=== PATIENT | female | born 1990 | race Caucasian/White ===

== ENCOUNTER 2019-12-30 15:54 | Inpatient (IN) | payer OTHER ==
[2019-12-30] MEDS ORDERED: Ondansetron 4 MG/2 ML SDV IVPUSH PRN ×2 (16:50→21:19)
[2019-12-30] MEDS ORDERED: Calcium Carbonate 500 MG Tab.Chew PO PRN (16:50)
[2019-12-30] MEDS ORDERED: Sodium Chloride 0.9% 10 ML Syringe FLUSH PRN (16:50)
[2019-12-30] MEDS ORDERED: Nalbuphine 10 MG/ML Syringe IVPUSH PRN (16:50)
[2019-12-30] MEDS ORDERED: Lidocaine 1% 50 ML MDV INJECT ONE (16:50)
[2019-12-30] MEDS ORDERED: Oxytocin/Lactated Ringers 10 UNIT/1,000 ML BAG IV SCH ×2 (17:00)
[2019-12-30] MEDS: Lactated Ringers 1,000 ML IV SCH ×3 (17:28→22:03)
--- NOTE | 2019-12-30 17:56 | PCM.LDHP ---
L&D History of Present Illness - General Date of Service: 12/30/19 Admit Problem/Dx: Patient Status Order with Admit Dx/Problem 12/30/19 16:50 Patient Status [ADT] Routine Admission Diagnosis/Problem Admission Diagnosis/Problem Source of Information: Patient History Limitations: Reports: No Limitations - History of Present Illness Introduction:: Shira Ortiz is a 29-year-old -0-1-2 at 41 weeks 1 day by LMP consistent with 6-week ultrasound ([facility] 12/22/2019) who presents for induction of labor in the setting of decreased movement at 41 weeks gestational age. She was seen in the clinic with her regular physician, Dr. Junior, today and while she was there she noted that she was having decreased movement. Because of her late term gestational age it was recommended for her to have induction of labor and she was transferred over to the labor and delivery unit for induction. She denies any cramping or contractions but did have one episode of upper abdominal pain earlier this week that resolved spontaneously. She denies any leaking of fluid or vaginal bleeding. Present Illness Comments:: Shira Ortiz is a 29-year-old -0-1-2 at 41 weeks 1 day by LMP consistent with a 6-week ultrasound ([facility] 12/22/2019) who presents for induction of labor in the setting of decreased movement at 41 weeks gestational age. She has had routine care with Dr. Junior starting at 6 weeks gestational age. She denies any significant problems or concerns throughout the . She was diagnosed with a subchorionic hemorrhage early in but did not have any significant bleeding or cramping episodes with this subchorionic hemorrhage in place. Her has been otherwise overall uncomplicated. This is complicated by: * Elevated 1 hour glucose tolerance test with a value of 132, normal 3-hour glucose tolerance test * History of anxiety and depression, currently not on medications * History of asthma but has not had any recent flares and typically will only have a flare with respiratory illness labs Blood type: O+ Antibody screen: Negative First trimester hematocrit/hemoglobin: 39.2%/13.5 on 06/09/2019 Platelets: 209 on 06/09/2019 Urine culture: Negative Rubella status: Immune Hepatitis B surface antigen: [Negative] RPR: [Negative] HIV: [Negative] Gonorrhea: [Negative] Chlamydia: [Negative] [] One hour glucose tolerance test: 132 Second trimester hemoglobin: 11.6 on 09/02/2019 Platelets: 203 on 09/02/2019 3-hour glucose tolerance test: Normal per report, values not listed on available records 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 G1: 01/31/2015, , 41 weeks 3 days, 8 pounds 4 ounces, received epidural, no complications G2: 10/02/2016, , 40 weeks 1 day, 8 pounds 11 ounces, received epidural, no complications G3: SAB in 01/2019 at approximately 6 weeks gestational age G4: Current History of chlamydia in 2010 and received treatment, no additional sexual transmitted infections since then History of abnormal Pap smear in 2015 with normal in 2017 - Related Data Allergies/Adverse Reactions: Allergies Allergy/AdvReac Type Severity Reaction Status Date / Time No Known Allergies Allergy Verified 12/30/19 16:45 Home Medications: Home Meds Cholecalciferol (Vitamin D3) [Vitamin D3] 1,000 unit PO DAILY 12/21/19 [History] Ferrous Sulfate [Iron] 325 mg PO DAILY 12/21/19 [History] No122/Iron/Folic Acid [ Multi Tablet] 1 each PO DAILY 12/21/19 [History] Past Medical History HEENT History: Reports: Other (See Below) Other HEENT History: spots in vision. 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: Reports: Endometriosis, , Spontaneous : 4 Para: 2 Psychiatric History: Reports: Anxiety, Depression - Past Surgical History HEENT Surgical History: Reports: Oral Surgery Other HEENT Surgeries/Procedures: wisdom tooth extraction Other Respiratory Surgeries/Procedures: occassionally needs albuterol inhaler, has not needed in years Female Surgical History: Reports: D&C, Other (See Below) Other Female Surgeries/Procedures: Lap for ovarian cyst rupture and endometriosis Social & Family History - Family History Family Medical History: Noncontributory - Tobacco Use Smoking Status *Q: Never Smoker Second Hand Smoke Exposure: No - Tobacco Core Measures Tobacco Use/Smoking Within Last 30 Days: No Smokeless Tobacco Use in Last 30 Days: No - Caffeine Use Caffeine Use: Reports: None - Alcohol Use Alcohol Use History: No - Recreational Drug Use Recreational Drug Use: No - Living Situation & Occupation Living situation: Reports: , with Spouse, with Family Occupation: Employed H&P Review of Systems - Review of Systems: Review Of Systems: See Below General: Denies: Fever, Chills, Fatigue HEENT: Reports: Glasses. Denies: Headaches, Rhinitis, Post Nasal Drip, Sinus Congestion, Sore Throat, Visual Changes Pulmonary: Denies: Shortness of Breath, Wheezing, Pleuritic Chest Pain, Cough Cardiovascular: Reports: Palpitations (occasional). Denies: Chest Pain Gastrointestinal: Denies: Abdominal Pain, Constipation, Diarrhea, Nausea, Vomiting Genitourinary: Denies: Dysuria, Frequency, Burning, Pain, Urgency Musculoskeletal: Reports: Back Pain (And hip pain of ) Skin: Denies: Rash, Lesions Psychiatric: Denies: Depression, Anxiety Hematologic/Lymphatic: Denies: Anemia L&D Exam - Exam Exam: See Below - Vital Signs Vital Signs: Last Vital Signs Temp 36.2 C 12/30/19 16:40 Pulse 103 H 12/30/19 16:40 Resp 14 12/30/19 16:40 BP 131/83 12/30/19 16:40 Pulse Ox 95 12/30/19 16:40 Weight: 91.58 kg - OB Specific Contraction Duration (sec): 45-60 Contraction Frequency (min): 25-30 Contraction Intensity: Mild to Moderate Movement: Active Heart Tones: Present Heart Tones per Min: 145 (+15 x 15 accelerations, intermittent variable decelerations) Heart Rate (FHR) Variability: Moderate (6-25 bmp) Presentation: Vertex Estimated Weight: 8-8.5 lbs by [place] - Bose Score Bose Score Cervix Position: Posterior Bose Score Consistency: Medium Bose Score Effacement: 31-50% (50) Bose Score Dilation: 1-2 cm (1.5 cm) Bose Score Infant's Station: -3 Bose Score Total: 3 - Exam General: Alert, Oriented HEENT: Conjunctiva Clear, EOMI Neck: Supple, Trachea Midline Lungs: Clear to Auscultation, Normal Respiratory Effort Cardiovascular: Regular Rate, Regular Rhythm GI/Abdominal Exam: Soft Genitourinary: Normal external exam Extremities: Normal Inspection, Pedal Edema (Trace pedal edema) Skin: Warm, Dry, Intact Psychiatric: Alert, Normal Affect, Normal Mood - Patient Data Lab Results Last 24 hrs: Laboratory Results - last 24 hr 12/30/19 Range/Units 17:30 WBC 11.76 H (3.98-10.04) K/mm3 RBC 3.86 L (3.98-5.22) M/mm3 Hgb 10.6 L (11.2-15.7) gm/dl Hct 33.9 L (34.1-44.9) % MCV 87.8 (79.4-94.8) fl MCH 27.5 (25.6-32.2) pg MCHC 31.3 L (32.2-35.5) g/dl RDW Std Deviation 42.6 (36.4-46.3) fL Plt Count 216 (182-369) K/mm3 MPV 10.9 (9.4-12.3) fl Neut % (Auto) 72.9 H (34.0-71.1) % Lymph % (Auto) 18.8 L (19.3-51.7) % [place] % (Auto) 7.1 (4.7-12.5) % Eos % (Auto) 0.8 (0.7-5.8) Baso % (Auto) 0.1 (0.1-1.2) % Neut # (Auto) 8.58 H (1.56-6.13) K/mm3 Lymph # (Auto) 2.21 (1.18-3.74) K/mm3 [place] # (Auto) 0.83 H (0.24-0.36) K/mm3 Eos # (Auto) 0.09 (0.04-0.36) K/mm3 Baso # (Auto) 0.01 (0.01-0.08) K/mm3 Result Diagrams: 12/30/19 17:30 - Problem List (1) 41 weeks gestation of SNOMED Code(s): 77850399 ICD Code: Z3A.41 - 41 WEEKS GESTATION OF Status: Acute Current Visit: Yes Problem List Initiated/Reviewed/Updated: Yes Orders Last 24hrs: Active Orders 24 hr Category Date Time Status Patient Status [ADT] Routine ADT 12/30/19 16:50 Active Activity as Tolerated [RC] PFP Care 12/30/19 16:50 Active Communication Order [RC] ASDIRECTED Care 12/30/19 16:50 Active Heart Tones [RC] ASDIRECTED Care 12/30/19 16:52 Active Notify Provider [RC] PFP Care 12/30/19 16:50 Active Notify Provider [RC] PRN Care 12/30/19 16:50 Active Peripheral IV Care [RC] . DIRECTED Care 12/30/19 16:52 Active Pump Management, Intrathecal [RC] ASDIRECTED Care 12/30/19 16:53 Active Urinary Catheter Assessment [RC] ASDIRECTED Care 12/30/19 16:50 Active Vital Signs [RC] PER UNIT ROUTINE Care 12/30/19 16:50 Active Regular Diet [DIET] Diet 12/30/19 Dinner Active RAPID PLASMA REAGIN,RPR [CHEM] Routine Lab 12/30/19 17:30 Received Calcium Carbonate [Tums] Med 12/30/19 16:50 Active 1,000 mg PO Q2H PRN Lactated Ringers [Ringers, Lactated] 1,000 ml Med 12/30/19 17:00 Active IV ASDIRECTED Nalbuphine [Nubain] Med 12/30/19 16:50 Active 10 mg IVPUSH Q2H PRN Ondansetron [Zofran] Med 12/30/19 16:50 Active 4 mg IVPUSH Q4H PRN Oxytocin/Lactated Ringers [Pitocin in LR 10 Units/1,000 Med 12/30/19 17:00 Active ML] 10 unit in 1,000 ml IV .CONTINUOUS Oxytocin/Lactated Ringers [Pitocin in LR 10 Units/1,000 Med 12/30/19 17:00 Active ML] 10 unit in 1,000 ml IV TITRATE Sodium Chloride 0.9% [Saline Flush] Med 12/30/19 16:50 Active 10 ml FLUSH ASDIRECTED PRN Electronic Heart Tones Ext w TOCO [WOMSER] Oth 12/30/19 16:50 Ordered Routine Electronic Heart Tones Internal [WOMSER] Per Unit Oth 12/30/19 16:50 Ordered Routine Peripheral IV Insertion Adult [OM.PC] Routine Oth 12/30/19 16:50 Ordered Resuscitation Status Routine Resus Stat 12/30/19 16:50 Ordered Medication Orders Calcium Carbonate/Glycine (Tums) 1,000 mg PO Q2H PRN PRN Reason: Indigestion Lactated Ringer's (Ringers, Lactated) 1,000 mls @ 100 mls/hr IV ASDIRECTED KAT Last Admin: 12/30/19 17:28 Dose: 100 mls/hr Oxytocin/Lactated Ringer's (Pitocin In Lr 10 Units/1,000 Ml) 10 unit in 1,000 mls @ 12 mls/hr IV TITRATE KAT; Protocol Last Admin: 12/30/19 17:28 Dose: 2 munits/min, 12 mls/hr Oxytocin/Lactated Ringer's (Pitocin In Lr 10 Units/1,000 Ml) 10 unit in 1,000 mls @ 100 mls/hr IV .CONTINUOUS KAT Nalbuphine HCl (Nubain) 10 mg IVPUSH Q2H PRN PRN Reason: Pain Ondansetron HCl (Zofran) 4 mg IVPUSH Q4H PRN PRN Reason: Nausea/Vomiting Sodium Chloride (Saline Flush) 10 ml FLUSH ASDIRECTED PRN PRN Reason: Keep Vein Open Assessment/Plan Comment:: Refer to observation for induction of labor in the setting of decreased movement and late term Start Pitocin for induction of labor Continuous monitoring Place IV and have Lactated Ringer's at 125 ml/hr May have small amounts of regular diet Activity as tolerated May have epidural as desired Plans to breast-feed after delivery Anticipate vaginal delivery unless otherwise indicated Shay Moctezuma MD 6:05 PM 12/30/2019
[2019-12-30] MEDS ORDERED: fentaNYL 100 MCG/2 ML SDV EPIDUR PRN (21:19)
[2019-12-30] MEDS ORDERED: ePHEDrine 50 MG/ML SDV IVPUSH PRN (21:19)
--- NOTE | 2019-12-30 21:23 | PCM.PREANE ---
Preanesthetic Assessment - Procedure Proposed Procedure: Epidural. - Anesthesia/Transfusion/Family Hx Anesthesia History: Prior Anesthesia Without Reaction Family History of Anesthesia Reaction: No Transfusion History: No Prior Transfusion(s) Intubation History: Unknown - Review of Systems General: No Symptoms Pulmonary: No Symptoms (asthma-2014 last used inhaler) Cardiovascular: No Symptoms, Palpitations (on occasion) Gastrointestinal: No Symptoms (GERD) Neurological: Headache (migraines) Other: Reports: Sinus Problem (nasal polyps), Depression, Anxiety - Physical Assessment NPO Status Date: 12/30/19 NPO Status Time: 18:00 Vital Signs: Last Vital Signs Temp 36.2 C 12/30/19 16:40 Pulse 103 H 12/30/19 16:40 Resp 14 12/30/19 16:40 BP 131/83 12/30/19 16:40 Pulse Ox 95 12/30/19 16:40 Height: 1.73 m Weight: 91.58 kg ASA Class: 2 Mental Status: Alert & Oriented x3 Airway Class: Mallampati = 2 Dentition: Reports: Normal Dentition, Caries Thyro-Mental Finger Breadths: 3 Mouth Opening Finger Breadths: 3 ROM/Head Extension: Full Lungs: Clear to Auscultation, Normal Respiratory Effort Cardiovascular: Regular Rate, Regular Rhythm, No Murmurs - Lab Values: Laboratory Last Values WBC 11.76 K/mm3 (3.98-10.04) H 12/30/19 17:30 RBC 3.86 M/mm3 (3.98-5.22) L 12/30/19 17:30 Hgb 10.6 gm/dl (11.2-15.7) L 12/30/19 17:30 Hct 33.9 % (34.1-44.9) L 12/30/19 17:30 MCV 87.8 fl (79.4-94.8) 12/30/19 17:30 MCH 27.5 pg (25.6-32.2) 12/30/19 17:30 MCHC 31.3 g/dl (32.2-35.5) L 12/30/19 17:30 RDW Std Deviation 42.6 fL (36.4-46.3) 12/30/19 17:30 Plt Count 216 K/mm3 (182-369) 12/30/19 17:30 MPV 10.9 fl (9.4-12.3) 12/30/19 17:30 Neut % (Auto) 72.9 % (34.0-71.1) H 12/30/19 17:30 Lymph % (Auto) 18.8 % (19.3-51.7) L 12/30/19 17:30 [place] % (Auto) 7.1 % (4.7-12.5) 12/30/19 17:30 Eos % (Auto) 0.8 (0.7-5.8) 12/30/19 17:30 Baso % (Auto) 0.1 % (0.1-1.2) 12/30/19 17:30 Neut # (Auto) 8.58 K/mm3 (1.56-6.13) H 12/30/19 17:30 Lymph # (Auto) 2.21 K/mm3 (1.18-3.74) 12/30/19 17:30 [place] # (Auto) 0.83 K/mm3 (0.24-0.36) H 12/30/19 17:30 Eos # (Auto) 0.09 K/mm3 (0.04-0.36) 12/30/19 17:30 Baso # (Auto) 0.01 K/mm3 (0.01-0.08) 12/30/19 17:30 Above labs reviewed and noted and within acceptable ranges to proceed with epidural. - Allergies Allergies/Adverse Reactions: Allergies Allergy/AdvReac Type Severity Reaction Status Date / Time No Known Allergies Allergy Verified 12/30/19 16:45 - Anesthesia Plan Pre-Op Medication Ordered: None - Acknowledgements Anesthesia Type Planned: Epidural Pt an Appropriate Candidate for the Planned Anesthesia: Yes Alternatives and Risks of Anesthesia Discussed w Pt/Guardian: Yes Pt/Guardian Understands and Agrees with Anesthesia Plan: Yes PreAnesthesia Questionnaire HEENT History: Reports: Other (See Below) Other HEENT History: spots in vision. 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 Psychiatric History: Reports: Anxiety, Depression - Past Surgical History HEENT Surgical History: Reports: Oral Surgery Other HEENT Surgeries/Procedures: wisdom tooth extraction Other Respiratory Surgeries/Procedures: occassionally needs albuterol inhaler, has not needed in years Female Surgical History: Reports: D&C, Other (See Below) Other Female Surgeries/Procedures: Lap for ovarian cyst rupture and endometriosis - SUBSTANCE USE Smoking Status *Q: Never Smoker Tobacco Use Within Last Twelve Months: No Second Hand Smoke Exposure: No Recreational Drug Use History: No - HOME MEDS Home Medications: Home Meds No122/Iron/Folic Acid [ Multi Tablet] 1 each PO DAILY 12/21/19 [History] - CURRENT (IN HOUSE) MEDS Current Meds: Current Medications Calcium Carbonate/Glycine (Tums) 1,000 mg PO Q2H PRN PRN Reason: Indigestion Ephedrine Sulfate (Ephedrine Sulfate) 5 mg IVPUSH ASDIRECTED PRN PRN Reason: Hypotension Fentanyl (Sublimaze) 100 mcg EPIDUR Q3H PRN PRN Reason: Pain Fentanyl/Bupivacaine HCl (Fentanyl/Bupivacaine/Ns 2 Mcg-0.125% 100 Ml) 100 ml EPIDUR ASDIRECTED KAT Lactated Ringer's (Ringers, Lactated) 1,000 mls @ 100 mls/hr IV ASDIRECTED KAT Last Admin: 12/30/19 17:28 Dose: 100 mls/hr Oxytocin/Lactated Ringer's (Pitocin In Lr 10 Units/1,000 Ml) 10 unit in 1,000 mls @ 12 mls/hr IV TITRATE KAT; Protocol Last Titration: 12/30/19 20:15 Dose: 10 munits/min, 60 mls/hr Oxytocin/Lactated Ringer's (Pitocin In Lr 10 Units/1,000 Ml) 10 unit in 1,000 mls @ 100 mls/hr IV .CONTINUOUS KAT Nalbuphine HCl (Nubain) 10 mg IVPUSH Q2H PRN PRN Reason: Pain Ondansetron HCl (Zofran) 4 mg IVPUSH Q4H PRN PRN Reason: Nausea/Vomiting Ondansetron HCl (Zofran) 4 mg IVPUSH ONETIME PRN PRN Reason: Nausea/Vomiting Sodium Chloride (Saline Flush) 10 ml FLUSH ASDIRECTED PRN PRN Reason: Keep Vein Open Discontinued Medications Lidocaine HCl (Xylocaine 1%) 50 ml INJECT ONETIME ONE Stop: 12/30/19 16:51
[2019-12-30] MEDS ORDERED: Bupivacaine/fentaNYL/NS 100 ML Bag EPIDUR SCH (21:30)
--- NOTE | 2019-12-30 23:11 | PCM.PNLD ---
Labor Progress Note - VS & Meds Vital Signs: Last Vital Signs Temp 36.2 C 12/30/19 16:40 Pulse 103 H 12/30/19 16:40 Resp 14 12/30/19 16:40 BP 131/83 12/30/19 16:40 Pulse Ox 95 12/30/19 16:40 Active Medications: Current Medications Calcium Carbonate/Glycine (Tums) 1,000 mg PO Q2H PRN PRN Reason: Indigestion Ephedrine Sulfate (Ephedrine Sulfate) 5 mg IVPUSH ASDIRECTED PRN PRN Reason: Hypotension Fentanyl (Sublimaze) 100 mcg EPIDUR Q3H PRN PRN Reason: Pain Last Admin: 12/30/19 21:30 Dose: 100 mcg Fentanyl/Bupivacaine HCl (Fentanyl/Bupivacaine/Ns 2 Mcg-0.125% 100 Ml) 100 ml EPIDUR ASDIRECTED KAT Last Admin: 12/30/19 21:30 Dose: 100 ml Lactated Ringer's (Ringers, Lactated) 1,000 mls @ 100 mls/hr IV ASDIRECTED KAT Last Admin: 12/30/19 22:03 Dose: 100 mls/hr Oxytocin/Lactated Ringer's (Pitocin In Lr 10 Units/1,000 Ml) 10 unit in 1,000 mls @ 12 mls/hr IV TITRATE KAT; Protocol Last Titration: 12/30/19 21:55 Dose: 12 munits/min, 72 mls/hr Oxytocin/Lactated Ringer's (Pitocin In Lr 10 Units/1,000 Ml) 10 unit in 1,000 mls @ 100 mls/hr IV .CONTINUOUS KAT Nalbuphine HCl (Nubain) 10 mg IVPUSH Q2H PRN PRN Reason: Pain Ondansetron HCl (Zofran) 4 mg IVPUSH Q4H PRN PRN Reason: Nausea/Vomiting Ondansetron HCl (Zofran) 4 mg IVPUSH ONETIME PRN PRN Reason: Nausea/Vomiting Sodium Chloride (Saline Flush) 10 ml FLUSH ASDIRECTED PRN PRN Reason: Keep Vein Open Discontinued Medications Lidocaine HCl (Xylocaine 1%) 50 ml INJECT ONETIME ONE Stop: 12/30/19 16:51 - Uterine Contractions Uterine Monitoring Mode: External Green Contraction Frequency (min): 2-3 Contraction Duration (sec): 45-60 Contraction Intensity: Moderate to Strong Uterine Resting Tone: Soft - Monitoring Monitor Mode: Doppler/Auscultation Heart Rate (FHR) Baseline: 140 Heart Rate (FHR) Per Doppler: 140 Heart Rate (FHR) Variability: Moderate (6-25 bmp) Accelerations: Present, 15x15 Decelerations: Variable, Intermittent (<50% x 20 min) Strip Review: Category II - Vaginal Exam Dilation (cm): 3 Effacement (Percent): 75 Station: -3 Cervical Position: Anterior Sterile Vaginal Exam Performed By: Shay Moctezuma Vaginal Exam Comment: Artificial rupture membranes performed with [place]. Return of clear fluid. Mother and tolerated procedure without difficulty. - Labor Progress (Free Text) Labor Progress: Patient continuing to make good progression at this time Artificial rupture membranes performed with return of clear fluid. Mother and infant tolerated procedure without difficulty Patient with epidural in place and working well at this time Routine vitals Continuous monitoring Continue Pitocin for induction of labor Anticipate vaginal delivery unless otherwise indicated Shay Moctezuma MD 11:11 PM 12/30/2019
--- NOTE | 2019-12-31 04:08 | PCM.DEL ---
L & D Note - General Info Date of Service: 12/31/19 Mother's Due Date: 12/22/19 - Delivery Note Labor: Augmented by ARM, Induced by Oxytocin Delivery Outcome: Livebirth Delivery Method: Spontaneous Vaginal Delivery-Single Presentation: Right Occiput Anterior (RINA) Nuchal Cord: None Prep: Povidone-Iodine (Betadine Anesthesia Type: Epidural Amniotic Fluid Description: Clear Episiotomy Type: None Laceration: 1st Degree (Perineal laceration, repaired with 4-0 Vicryl) Suture type: Vicryl Suture size: 4-0 Placenta: Intact, Spontaneous Cord: 3 Vessels Estimated Blood Loss: 200 Resuscitation Needed: No : Bulb Syringe, Stimulated, Warmed, [place] Used Provider: Shay Moctezuma Score 1 min: 8 Score 5 min: 9 Second Stage Interventions: Reports: Pushing, Stirrups/Leg Supports Delivery Comments (Free Text/Narrative):: Stage I: Shira Ortiz was admitted for induction of labor in the setting of decreased movement in the late setting at 41 weeks gestational age. On admission her cervix was dilated to 1.5 cm. She was GBS negative. Attempt was made to place a 18 [place] Boyd bulb but unsuccessful with manual placement. Patient declined placement with speculum. Patient was started on Pitocin for induction of labor. She was given an epidural for anesthesia. She had artificial rupture membranes with return of clear fluid. She progressed to complete and pushing. Stage II: On 12/31/2019 she had a normal vaginal delivery of a live female at 03:22. Apgars of 8 & 9. Weight and length were unavailable at time of the note. There was no nuchal cord. was delivered in RINA position. The cord was doubly clamped and cut by father the . Infant was placed on mother's abdomen. Stage III: She had a spontaneous delivery of an intact placenta in [place] presentation. Three vessel cord. She was given pitocin and fundal massage. She had a first-degree midline perineal laceration that was bleeding and was repaired with 4-0 Vicryl. She continued to have small pinpoint area with bleeding that was made hemostatic with a [id number] suture using 4-0 Vicryl. Mom and baby were stable to recovery. EBL of 200 mL. Shay Moctezuma MD 4:05 AM 12/31/2019 Induction Criteria - Bose Score Bose Score Dilation: 1-2 cm Bose Score Effacement: 40-50% Bose Score Infant's Station: -3 Bose Score Consistency: Medium Bose Score Cervix Position: Posterior Bose Score Total: 3 Bose Score Presenting Part: Reports: Cephalic - Induction Gestational Age >/= 39 wks: Yes Medical Indication: Decreased movement in late term gestational age at 41 weeks Estimated Pelvis: Reports: Adequate Reassuring Monitoring Strip: Yes Absence of Tachy Systole: Yes - Augmentation Estimated Pelvis: Reports: Adequate Weight Estimated:: Reports: AGA Reassuring Monitoring Strip: Yes Absence of Tachy Systole: Yes - General Info Date of Service: 12/31/19 - Patient Data Vitals - Most Recent: Last Vital Signs Temp 36.2 C 12/30/19 16:40 Pulse 103 H 12/30/19 16:40 Resp 14 12/30/19 16:40 BP 131/83 12/30/19 16:40 Pulse Ox 95 12/30/19 16:40 Weight - Most Recent: 91.58 kg I&O - Last 24 Hours: Intake & Output 12/30/19 12/30/19 12/31/19 14:59 22:59 06:59 Intake Total 1000 Balance 1000 Lab Results Last 24 Hours: Laboratory Results - last 24 hr 12/30/19 Range/Units 17:30 WBC 11.76 H (3.98-10.04) K/mm3 RBC 3.86 L (3.98-5.22) M/mm3 Hgb 10.6 L (11.2-15.7) gm/dl Hct 33.9 L (34.1-44.9) % MCV 87.8 (79.4-94.8) fl MCH 27.5 (25.6-32.2) pg MCHC 31.3 L (32.2-35.5) g/dl RDW Std Deviation 42.6 (36.4-46.3) fL Plt Count 216 (182-369) K/mm3 MPV 10.9 (9.4-12.3) fl Neut % (Auto) 72.9 H (34.0-71.1) % Lymph % (Auto) 18.8 L (19.3-51.7) % [place] % (Auto) 7.1 (4.7-12.5) % Eos % (Auto) 0.8 (0.7-5.8) Baso % (Auto) 0.1 (0.1-1.2) % Neut # (Auto) 8.58 H (1.56-6.13) K/mm3 Lymph # (Auto) 2.21 (1.18-3.74) K/mm3 [place] # (Auto) 0.83 H (0.24-0.36) K/mm3 Eos # (Auto) 0.09 (0.04-0.36) K/mm3 Baso # (Auto) 0.01 (0.01-0.08) K/mm3 Med Orders - Current: Current Medications Calcium Carbonate/Glycine (Tums) 1,000 mg PO Q2H PRN PRN Reason: Indigestion Ephedrine Sulfate (Ephedrine Sulfate) 5 mg IVPUSH ASDIRECTED PRN PRN Reason: Hypotension Fentanyl (Sublimaze) 100 mcg EPIDUR Q3H PRN PRN Reason: Pain Last Admin: 12/30/19 21:30 Dose: 100 mcg Fentanyl/Bupivacaine HCl (Fentanyl/Bupivacaine/Ns 2 Mcg-0.125% 100 Ml) 100 ml EPIDUR ASDIRECTED KAT Last Admin: 12/30/19 21:30 Dose: 100 ml Lactated Ringer's (Ringers, Lactated) 1,000 mls @ 100 mls/hr IV ASDIRECTED KAT Last Admin: 12/30/19 22:03 Dose: 100 mls/hr Oxytocin/Lactated Ringer's (Pitocin In Lr 10 Units/1,000 Ml) 10 unit in 1,000 mls @ 12 mls/hr IV TITRATE KAT; Protocol Last Titration: 12/31/19 03:23 Dose: 999 mls/hr Oxytocin/Lactated Ringer's (Pitocin In Lr 10 Units/1,000 Ml) 10 unit in 1,000 mls @ 100 mls/hr IV .CONTINUOUS KAT Last Admin: 12/31/19 03:49 Dose: 999 mls/hr Nalbuphine HCl (Nubain) 10 mg IVPUSH Q2H PRN PRN Reason: Pain Ondansetron HCl (Zofran) 4 mg IVPUSH Q4H PRN PRN Reason: Nausea/Vomiting Ondansetron HCl (Zofran) 4 mg IVPUSH ONETIME PRN PRN Reason: Nausea/Vomiting Sodium Chloride (Saline Flush) 10 ml FLUSH ASDIRECTED PRN PRN Reason: Keep Vein Open Discontinued Medications Lidocaine HCl (Xylocaine 1%) 50 ml INJECT ONETIME ONE Stop: 12/30/19 16:51 - Problem List & Annotations (1) 41 weeks gestation of SNOMED Code(s): 05006984 Code(s): Z3A.41 - 41 WEEKS GESTATION OF Status: Acute Current Visit: Yes (2) Vaginal delivery SNOMED Code(s): 351689658 Code(s): O80 - ENCOUNTER FOR FULL-TERM UNCOMPLICATED DELIVERY Status: Acute Current Visit: Yes (3) First degree perineal laceration during delivery SNOMED Code(s): 831428874 Code(s): O70.0 - FIRST DEGREE PERINEAL LACERATION DURING DELIVERY Status: Acute Current Visit: Yes - Problem List Review Problem List Initiated/Reviewed/Updated: Yes - My Orders Last 24 Hours: My Active Orders 12/30/19 16:50 Patient Status [ADT] Routine Activity as Tolerated [RC] PFP Communication Order [RC] ASDIRECTED Notify Provider [RC] PFP Notify Provider [RC] PRN Urinary Catheter Assessment [RC] ASDIRECTED Calcium Carbonate [Tums] 1,000 mg PO Q2H PRN Nalbuphine [Nubain] 10 mg IVPUSH Q2H PRN Ondansetron [Zofran] 4 mg IVPUSH Q4H PRN Sodium Chloride 0.9% [Saline Flush] 10 ml FLUSH ASDIRECTED PRN Electronic Heart Tones Ext w TOCO [WOMSER] Routine Electronic Heart Tones Internal [WOMSER] Per Unit Routine Peripheral IV Insertion Adult [OM.PC] Routine Resuscitation Status Routine 12/30/19 16:52 Peripheral IV Care [RC] Q2HR 12/30/19 16:53 Pump Management, Intrathecal [RC] ASDIRECTED 12/30/19 17:00 Lactated Ringers [Ringers, Lactated] 1,000 ml IV ASDIRECTED Oxytocin/Lactated Ringers [Pitocin in LR 10 Units/1,000 ML] 10 unit in 1,000 ml IV .CONTINUOUS Oxytocin/Lactated Ringers [Pitocin in LR 10 Units/1,000 ML] 10 unit in 1,000 ml IV TITRATE 12/30/19 17:30 RAPID PLASMA REAGIN,RPR [CHEM] Routine 12/30/19 Dinner Regular Diet [DIET] 12/31/19 03:48 Patient Status Manage Transfer [TRANSFER] Routine - Plan Plan:: Admit to inpatient following normal spontaneous vaginal delivery Continue Pitocin per unit protocol following delivery of placenta and lactated Ringer's until tolerating regular diet Regular diet Vitals per unit routine Ibuprofen and Tylenol for pain control Assist with breast-feeding as needed Continue to monitor lochia Anticipate discharge home on day #1 Shay Moctezuma MD 4:05 AM 12/31/2019
[2019-12-31] MEDS ORDERED: Witch Hazel Medicated Pads 40/Jar TOP PRN (04:17)
[2019-12-31] MEDS ORDERED: Acetaminophen 325 MG Tab PO PRN (04:17)
[2019-12-31] MEDS ORDERED: Oxytocin/Lactated Ringers 10 UNIT/1,000 ML BAG IV SCH (04:17)
[2019-12-31] MEDS ORDERED: Benzocaine/Menthol 20%-0.5% Spray 56 GM Canister TOP PRN (04:17)
[2019-12-31] MEDS ORDERED: Hydrocortisone Acetate 25 MG Supp RECTAL PRN (04:17)
[2019-12-31] MEDS: Ibuprofen 600 MG Tab PO PRN ×3 (05:19→19:42)
[2019-12-31] MEDS: Ferrous Sulfate 324 MG Tab.EC PO SCH (09:30)
[2019-12-31] MEDS: Prenatal Multivitamin with Calcium/Folic Acid/Iron Tab PO SCH (09:30)
--- NOTE | 2019-12-31 10:44 | PCM48HPAN ---
Post Anesthesia Note - EVALUATION WITHIN 48HRS OF ANESTHETIC Vital Signs in Normal Range: Yes Patient Participated in Evaluation: Yes Respiratory Function Stable: Yes Airway Patent: Yes Cardiovascular Function Stable: Yes Hydration Status Stable: Yes Pain Control Satisfactory: Yes Nausea and Vomiting Control Satisfactory: Yes Mental Status Recovered: Yes Vital Signs: Last Vital Signs Temp 36.9 C 12/31/19 08:18 Pulse 82 12/31/19 08:18 Resp 14 12/31/19 08:18 BP 110/57 L 12/31/19 08:18 Pulse Ox 97 12/31/19 08:18
[2020-01-01] MEDS ORDERED: Bupivacaine 0.25% 10 ML SDV ONE
[2020-01-01] MEDS: Ibuprofen 600 MG Tab PO PRN (06:26)
--- NOTE | 2020-01-01 09:31 | PCM.SN.2 ---
- Free Text/Narrative Note: Post Progress Note PPD #1 Subjective: Doing well overall. Ambulating without difficulty. Lochia minimal and decreasing since yesterday. Voiding without difficulty. Tolerating regular diet without nausea or vomiting. Pain controlled with oral medications. Breast -feeding with minimal difficulty. Objective: Vitals: Vital Signs - 24 hr 12/31/19 12/31/19 01/01/20 15:42 19:43 03:18 Temperature 36.8 C 36.4 C 36.8 C Pulse, 79 82 85 Peripheral Respiratory 14 14 14 Rate Blood Pressure 121/67 122/77 122/82 O2 Sat by Pulse 98 99 99 Oximetry 01/01/20 08:48 Temperature 36.7 C Pulse, 76 Peripheral Respiratory 14 Rate Blood Pressure 123/73 O2 Sat by Pulse 98 Oximetry Physical Exam General: Alert and oriented, no acute distress Lungs: Clear to auscultation bilaterally Heart: Regular rate and rhythm Abdomen: Soft, minimal appropriate tenderness, non-distended, fundus midline, nontender, and at the umbilicus Extremities: No edema ASSESSMENT: 29-year-old female -0-1-3 s/p normal vaginal delivery PPD #1, complicated by elevated 1 hour glucose test, history of anxiety and depression and history of asthma PLAN: Doing well Breast-feeding with minimal difficulty. Assist as needed Lochia minimal. Continue to monitor for appropriate lochia. Continue routine care Anticipate discharge home today Shay Moctezuma MD 9:31 AM 01/01/2020
--- NOTE | 2020-01-01 09:37 | PCM.DCSUM1 ---
Discharge Summary - Hospital Course Free Text/Narrative:: - General Info Date of Service: 12/31/19 Mother's Due Date: 12/22/19 - Delivery Note Labor: Augmented by ARM, Induced by Oxytocin Delivery Outcome: Livebirth Infant Delivery Method: Spontaneous Vaginal Delivery-Single Presentation: Right Occiput Anterior (RINA) Nuchal Cord: None Prep: Povidone-Iodine (Betadine Anesthesia Type: Epidural Amniotic Fluid Description: Clear Episiotomy Type: None Laceration: 1st Degree (Perineal laceration, repaired with 4-0 Vicryl) Suture type: Vicryl Suture size: 4-0 Placenta: Intact, Spontaneous Cord: 3 Vessels Estimated Blood Loss: 200 Resuscitation Needed: No [place]: Bulb Syringe, Stimulated, Warmed, [place] Used Provider: Shay Moctezuma Score 1 min: 8 Score 5 min: 9 Second Stage Interventions: Reports: Pushing, Stirrups/Leg Supports Delivery Comments (Free Text/Narrative):: Stage I: Shira Ortiz was admitted for induction of labor in the setting of decreased movement in the late setting at 41 weeks gestational age. On admission her cervix was dilated to 1.5 cm. She was GBS negative. Attempt was made to place a 18 [place] Boyd bulb but unsuccessful with manual placement. Patient declined placement with speculum. Patient was started on Pitocin for induction of labor. She was given an epidural for anesthesia. She had artificial rupture membranes with return of clear fluid. She progressed to complete and pushing. Stage II: On 12/31/2019 she had a normal vaginal delivery of a live female infant at 03:22. Apgars of 8 & 9. Weight and length were unavailable at time of the note. There was no nuchal cord. Infant was delivered in RINA position. The cord was doubly clamped and cut by father the . was placed on mother's abdomen. Stage III: She had a spontaneous delivery of an intact placenta in [place] presentation. Three vessel cord. She was given pitocin and fundal massage. She had a first-degree midline perineal laceration that was bleeding and was repaired with 4-0 Vicryl. She continued to have small pinpoint area with bleeding that was made hemostatic with a [id number] suture using 4-0 Vicryl. Mom and baby were stable to recovery. EBL of 200 mL. HPI Initial Comments: - General Info Date of Service: 12/31/19 Mother's Due Date: 12/22/19 - Delivery Note Labor: Augmented by ARM, Induced by Oxytocin Delivery Outcome: Livebirth Infant Delivery Method: Spontaneous Vaginal Delivery-Single Presentation: Right Occiput Anterior (RINA) Nuchal Cord: None Prep: Povidone-Iodine (Betadine Anesthesia Type: Epidural Amniotic Fluid Description: Clear Episiotomy Type: None Laceration: 1st Degree (Perineal laceration, repaired with 4-0 Vicryl) Suture type: Vicryl Suture size: 4-0 Placenta: Intact, Spontaneous Cord: 3 Vessels Estimated Blood Loss: 200 Resuscitation Needed: No : Bulb Syringe, Stimulated, Warmed, [place] Used Provider: Shay Moctezuma Score 1 min: 8 Score 5 min: 9 Second Stage Interventions: Reports: Pushing, Stirrups/Leg Supports Delivery Comments (Free Text/Narrative):: Stage I: Shira Ortiz was admitted for induction of labor in the setting of decreased movement in the late setting at 41 weeks gestational age. On admission her cervix was dilated to 1.5 cm. She was GBS negative. Attempt was made to place a 18 [place] Boyd bulb but unsuccessful with manual placement. Patient declined placement with speculum. Patient was started on Pitocin for induction of labor. She was given an epidural for anesthesia. She had artificial rupture membranes with return of clear fluid. She progressed to complete and pushing. Stage II: On 12/31/2019 she had a normal vaginal delivery of a live female infant at 03:22. Apgars of 8 & 9. Weight and length were unavailable at time of the note. There was no nuchal cord. Infant was delivered in RINA position. The cord was doubly clamped and cut by father the infant. was placed on mother's abdomen. Stage III: She had a spontaneous delivery of an intact placenta in [place] presentation. Three vessel cord. She was given pitocin and fundal massage. She had a first-degree midline perineal laceration that was bleeding and was repaired with 4-0 Vicryl. She continued to have small pinpoint area with bleeding that was made hemostatic with a [id number] suture using 4-0 Vicryl. Mom and baby were stable to recovery. EBL of 200 mL. Brief History: - General Info. Date of Service: 12/31/19. Mother's Due Date: 12/22/19. - Delivery Note. Labor: Augmented by ARM, Induced by Oxytocin. Delivery Outcome: Livebirth. Delivery Method: Spontaneous Vaginal Delivery-Single. Presentation: Right Occiput Anterior (RINA). Nuchal Cord : None. Prep: Povidone-Iodine (Betadine. Anesthesia Type: Epidural. Amniotic Fluid Description: Clear. Episiotomy Type: None. Laceration: 1st Degree ( Perineal laceration, repaired with 4-0 Vicryl). Suture type: Vicryl. Suture size: 4-0. Placenta: Intact, Spontaneous. Cord: 3 Vessels. Estimated Blood Loss: 200. Resuscitation Needed: No. [place]: Bulb Syringe, Stimulated, Warmed , [place] Used. Provider: Shay Moctezuma. Score 1 min: 8. Score 5 min: 9. Second Stage Interventions: Reports: Pushing, Stirrups/ Leg Supports. Delivery Comments (Free Text/Narrative):: Stage I: Shira Ortiz was admitted for induction of labor in the setting of decreased movement in the late setting at 41 weeks gestational age. On admission her cervix was dilated to 1.5 cm. She was GBS negative. Attempt was made to place a 18 [place] Boyd bulb but unsuccessful with manual placement. Patient declined placement with speculum. Patient was started on Pitocin for induction of labor. She was given an epidural for anesthesia. She had artificial rupture membranes with return of clear fluid. She progressed to complete and pushing. Stage II: On 12/31/2019 she had a normal vaginal delivery of a live female infant at 03:22. Apgars of 8 & 9. Weight and length were unavailable at time of the note. There was no nuchal cord. was delivered in RINA position. The cord was doubly clamped and cut by father the infant. was placed on mother's abdomen. Stage III: She had a spontaneous delivery of an intact placenta in [place] presentation. Three vessel cord. She was given pitocin and fundal massage. She had a first-degree midline perineal laceration that was bleeding and was repaired with 4-0 Vicryl. She continued to have small pinpoint area with bleeding that was made hemostatic with a figure-of- eight suture using 4-0 Vicryl. Mom and baby were stable to recovery. EBL of 200 mL. Diagnosis: Stroke: No - Discharge Data Discharge Date: 01/01/20 Discharge Disposition: Home, Self-Care 01 Condition: Good - Referral to Home Health Primary Care Physician: Diana Hart MD - Discharge Diagnosis/Problem(s) (1) 41 weeks gestation of SNOMED Code(s): 58418793 ICD Code: Z3A.41 - 41 WEEKS GESTATION OF Status: Acute Current Visit: Yes (2) Vaginal delivery SNOMED Code(s): 300543315 ICD Code: O80 - ENCOUNTER FOR FULL-TERM UNCOMPLICATED DELIVERY Status: Acute Current Visit: Yes (3) First degree perineal laceration during delivery SNOMED Code(s): 825016668 ICD Code: O70.0 - FIRST DEGREE PERINEAL LACERATION DURING DELIVERY Status: Acute Current Visit: Yes - Patient Summary/Data Complications: None Consults: None Hospital Course: Shira Ortiz was admitted for induction of labor in the setting of decreased movement in late term at 41 weeks gestational age. On admission her cervix was dilated to 1.5 cm. She was GBS negative. She was given pitocin for augmentation. She was given an epidural for anesthesia. She had artificial rupture of membranes with clear fluid. She progressed to complete and began pushing. On 12/31/2019 she had a normal vaginal delivery of a live female infant at 03:22. Apgars of 8 and 9. Weight of 3650 g (8 pounds 0.7 ounces). Her course was uneventful. Her pain was well controlled and she had minimal lochia. She was ambulating, tolerating a regular diet and voiding normally. She was breast-feeding with minimal difficulty. She was afebrile and her hematocrit was 33.9 on admission. She desired to be discharged home on the morning of PPD #1. Her type is O+. - Patient Instructions Diet: Regular Diet as Tolerated Activity: Apply Ice, As Tolerated Activity, Other: Nothing in the vagina for 6 weeks Driving: May Drive Today Showering/Bathing: May Shower Notify Provider of: Fever, Increased Pain, Swelling and Redness, Drainage, Nausea and/or Vomiting Other/Special Instructions: Please contact your physician's office if you have heavy vaginal bleeding enough to soak a pad in less than an hour for several hours. Monitor for any signs of an infection in the breasts with severe pain or redness of the breast. - Discharge Plan *PRESCRIPTION DRUG MONITORING PROGRAM REVIEWED*: Not Applicable *COPY OF PRESCRIPTION DRUG MONITORING REPORT IN PATIENT GEMMA: Not Applicable Home Medications: Home Meds No122/Iron/Folic Acid [ Multi Tablet] 1 each PO DAILY 12/21/19 [History] Acetaminophen [Tylenol] 650 mg PO Q6H PRN tablet 01/01/20 [Rx] Benzocaine/Menthol [Dermoplast Pain Relief [place]] 1 spray TOP ASDIRECTED PRN canister 01/01/20 [Rx] Ferrous Sulfate 324 mg PO WITHBREAKFAST tab.ec 01/01/20 [Rx] Hydrocortisone Acetate [Anucort-HC] 25 mg RECTAL BID PRN supp 01/01/20 [Rx] Ibuprofen [Motrin] 600 mg PO Q6H PRN tablet 01/01/20 [Rx] sw[place]a [place] [Tucks] 1 pad TOP ASDIRECTED PRN pad 01/01/20 [Rx] Patient Handouts: and Self-Care, Care of a Perineal Tear, Care After Vaginal Delivery Referrals: Diana Hart MD [Primary Care Provider] - (Follow-up in 4 to 6 weeks for routine visit or earlier as needed) - Discharge Summary/Plan Comment DC Time >30 min.: No - Patient Data Vitals - Most Recent: Last Vital Signs Temp 36.7 C 01/01/20 08:48 Pulse 76 01/01/20 08:48 Resp 14 01/01/20 08:48 BP 123/73 01/01/20 08:48 Pulse Ox 98 01/01/20 08:48 Weight - Most Recent: 91.58 kg Med Orders - Current: Current Medications Acetaminophen (Tylenol) 650 mg PO Q6H PRN PRN Reason: mild pain or fever Last Admin: 12/31/19 18:03 Dose: 650 mg Benzocaine/Menthol (Dermoplast Pain Relief [place]) 0 gm TOP ASDIRECTED PRN PRN Reason: Perineal Comfort Measure Last Admin: 12/31/19 05:19 Dose: 1 canister Ferrous Sulfate (Ferrous Sulfate) 324 mg PO WITHBREAKFAST KAT Last Admin: 12/31/19 09:30 Dose: 324 mg Hydrocortisone Acetate (Anucort-Hc) 25 mg RECTAL BID PRN PRN Reason: Hemorrhoid pain Oxytocin/Lactated Ringer's (Pitocin In Lr 10 Units/1,000 Ml) 10 unit in 1,000 mls @ 100 mls/hr IV TITRATE KAT; Protocol Ibuprofen (Motrin) 600 mg PO Q6H PRN PRN Reason: Mild pain or fever Last Admin: 01/01/20 06:26 Dose: 600 mg Prenat Multivit/[place]/Iron/Folic Ac ( Plus Iron) 1 each PO DAILY KAT Last Admin: 12/31/19 09:30 Dose: 1 each [place] (Tucks) 1 pad TOP ASDIRECTED PRN PRN Reason: Perineal Comfort Measure Last Admin: 12/31/19 05:19 Dose: 1 container Discontinued Medications Calcium Carbonate/Glycine (Tums) 1,000 mg PO Q2H PRN PRN Reason: Indigestion Ephedrine Sulfate (Ephedrine Sulfate) 5 mg IVPUSH ASDIRECTED PRN PRN Reason: Hypotension Fentanyl (Sublimaze) 100 mcg EPIDUR Q3H PRN PRN Reason: Pain Last Admin: 12/30/19 21:30 Dose: 100 mcg Fentanyl/Bupivacaine HCl (Fentanyl/Bupivacaine/Ns 2 Mcg-0.125% 100 Ml) 100 ml EPIDUR ASDIRECTED KAT Last Admin: 12/30/19 21:30 Dose: 100 ml Lactated Ringer's (Ringers, Lactated) 1,000 mls @ 100 mls/hr IV ASDIRECTED KAT Last Admin: 12/30/19 22:03 Dose: 100 mls/hr Oxytocin/Lactated Ringer's (Pitocin In Lr 10 Units/1,000 Ml) 10 unit in 1,000 mls @ 12 mls/hr IV TITRATE KAT; Protocol Last Titration: 12/31/19 03:23 Dose: 999 mls/hr Oxytocin/Lactated Ringer's (Pitocin In Lr 10 Units/1,000 Ml) 10 unit in 1,000 mls @ 100 mls/hr IV .CONTINUOUS KAT Last Admin: 12/31/19 03:49 Dose: 999 mls/hr Lidocaine HCl (Xylocaine 1%) 50 ml INJECT ONETIME ONE Stop: 12/30/19 16:51 Last Admin: 12/31/19 05:57 Dose: Not Given Nalbuphine HCl (Nubain) 10 mg IVPUSH Q2H PRN PRN Reason: Pain Ondansetron HCl (Zofran) 4 mg IVPUSH Q4H PRN PRN Reason: Nausea/Vomiting Ondansetron HCl (Zofran) 4 mg IVPUSH ONETIME PRN PRN Reason: Nausea/Vomiting Sodium Chloride (Saline Flush) 10 ml FLUSH ASDIRECTED PRN PRN Reason: Keep Vein Open
[2020-01-01] MEDS: Ferrous Sulfate 324 MG Tab.EC PO SCH (09:57)
[2020-01-01] MEDS: Prenatal Multivitamin with Calcium/Folic Acid/Iron Tab PO SCH (09:57)
== END 2020-01-01 10:26 | disposition home or self-care (01) | DRG 807 ==
LOC: JD.OBCHECK 15:54 → JD.OB 15:56 → OBSVTOIN 12-31 03:22 → JD.OB 12-31 03:23
PROVIDERS: ADMIT Obstetrics & Gynecology; ATTEND Obstetrics & Gynecology
PROC: 10E0XZZ Delivery of Products of Conception, External Approach (ICD-10-PCS; principal; 2019-12-31)
PROC: 10907ZC Drainage of Amniotic Fluid, Therapeutic from Products of Conception, Via Natural or Artificial Opening (ICD-10-PCS; 2019-12-31)
PROC: 3E033VJ Introduction of Other Hormone into Peripheral Vein, Percutaneous Approach (ICD-10-PCS; 2019-12-31)
PROC: 0HQ9XZZ Repair Perineum Skin, External Approach (ICD-10-PCS; 2019-12-31)
PROC: 3E0R3BZ Introduction of Anesthetic Agent into Spinal Canal, Percutaneous Approach (ICD-10-PCS; 2019-12-31)
DX: O36.8130 Decreased fetal movements, third trimester, not applicable or unspecified (principal); Z37.0 Single live birth; O48.0 Post-term pregnancy; Z3A.41 41 weeks gestation of pregnancy; O70.0 First degree perineal laceration during delivery; O99.62 Diseases of the digestive system complicating childbirth; K21.9 Gastro-esophageal reflux disease without esophagitis
CPT/HCPCS: 01967; 36415; 51702; 59025; 59409; 85025; 86592; A9270-GY; J2590; J3010; J3490; J7120